=== PATIENT | male | born 1970 | race Caucasian/White ===

== ENCOUNTER 2016-09-06 10:51 | Emergency (ER) | payer OTHER ==
[2016-09-06 11:08] VITALS: TEMP 98; BMI 50.1
--- NOTE | 2016-09-06 11:52 | PDOC ---
History of Present Illness - General Chief Complaint: Wound Infection Stated Complaint: RT LEG WOUND INFECTION Time Seen by Provider: 09/06/16 11:45 History Source: Patient Exam Limitations: No Limitations - History of Present Illness Initial Comments: CHIEF COMPLAINT: 46 y/o afebrile, morbidly obese male, with PMH HTN and peripheral edema c/o infected right leg. HISTORY OF PRESENT ILLNESS: The patient states he had 2 small cuts to his right lower leg about 1 month ago. He states he has been constantly picking at them and over the past 1 week the area has become increasingly more red and warm. He denies f/c, n/v/d, CP, SOB, cough, hemoptysis, abd pain, numbess/ tingling in LEs. Vital signs on arrival are within normal limits. REVIEW OF SYSTEMS: GENERAL/CONSTITUTIONAL: No fever/chills. No weakness. No weight change. HEAD, EYES, EARS, NOSE AND THROAT: No change in vision. No ear pain or discharge. No sore throat. GENITOURINARY: No dysuria, frequency, or change in urination. MUSCULOSKELETAL: +right lower leg redness and warmth. No neck or back pain. SKIN: No rash or easy bruising. NEUROLOGIC: No headache, vertigo, loss of consciousness, or loss of sensation. PHYSICAL EXAM: VITAL_SIGNS: within normal limits GENERAL_APPEARANCE: alert, cooperative, no obvious discomfort. The patient is morbidly obese and ambulatory. MENTAL_STATUS: speech clear, oriented X 3, responds appropriately to questions. NEURO: motor intact and sensory intact in injured extremity. EXTREMITIES: good pulse in injured extremity. 13cm x 10cm in diameter area of erythema on distal right lower extremity. The affected area is warm and TTP. There is 2+pitting edema in affected leg. No streaking. No discharge expressed with pressure. SKIN: warm, dry, good color. Past History - Past Medical History Allergies/Adverse Reactions: Allergies Allergy/AdvReac Type Severity Reaction Status Date / Time No Known Allergies Allergy Verified 09/06/16 11:08 Home Medications: Ambulatory Orders Aspirin [ASA -] 81 mg PO DAILY 09/06/16 Cetirizine HCl [Zyrtec -] 10 mg PO DAILY 09/06/16 Clindamycin 600Mg Premix Ivpb [Cleocin 600 mg Premix Ivpb -] 600 mg IV ONCE #1 bag 09/06/16 Clindamycin [Cleocin -] 300 mg PO QID #40 capsule 09/06/16 Furosemide [Lasix -] 40 mg PO DAILY 09/06/16 GI Disorders: Yes HTN: Yes Other medical history: ALLERGIES - Psycho/Social/Smoking Cessation Hx Suicidal Ideation: No Smoking History: Never smoked Information on smoking cessation initiated: No *Physical Exam - Vital Signs Last Vital Signs Temp Pulse Resp BP Pulse Ox 98 F 89 18 161/96 98 09/06/16 11:04 09/06/16 11:04 09/06/16 11:04 09/06/16 11:04 09/06/16 11:04 ED Treatment Course - LABORATORY CBC & Chemistry Diagram: 09/06/16 11:57 09/06/16 11:57 Medical Decision Making - Medical Decision Making A/P: 46 y/o afebrile male with right Lower leg cellulitis. Plan is as follows: 1. Labs 2. xray lower extremity Labs unremarkable. Xray right leg IMPRESSION: No signs of osteomyelitis. No acute pathology. Will order first dose of IV clinda The patient will be discharged to home with dx of cellulitis. Will discharge to home with rx for 10 days of clinda. instructed him to keep area clean and dry, avoid touching and scratching affected area, and f/u with his PCP tomorrow. Instructed the patient to return to the ER with any worsening or concerning symptoms, including streaking, fevers or worsening of redness. The patient verbalizes understanding of all instructions, has no further questions and is awaiting discharge. *DC/Admit/Observation/Transfer Diagnosis at time of Disposition: Cellulitis Qualifiers: Site of cellulitis: extremity Site of cellulitis of extremity: lower extremity Laterality: right Qualified Code(s): L03.115 - Cellulitis of right lower limb - Discharge Dispostion Disposition: HOME Condition at time of disposition: Good - Prescriptions Prescriptions: Clindamycin 600Mg Premix Ivpb [Cleocin 600 mg Premix Ivpb -] 600 mg IV ONCE #1 bag - Referrals Referrals: Mari Millan MD [Primary Care Provider] - Call tomorrow - Patient Instructions Printed Discharge Instructions: DI for Cellulitis -- Adult Additional Instructions: Discharge Instructions: -Take entire 10 day course of Clindamycin; A prescription was sent to [facility] -Keep area clean and dry -Avoid scratching or touching the affected area -Call your doctor tomorrow to schedule a follow up appointment -return to the ER immediately with any worsening or concerning symptoms, including streaking or fever
[2016-09-06 12:15] LABS: BASOPHIL 0.7 % (0-2.0); EOSINOPHIL 3.4 % (0-4.5); MCH 29.8 pg (25.7-33.7); MCHC 33.4 g/dl (32.0-35.9); MEAN CELL VOLUME 89.2 fl (80-96); MEAN PLT VOLUME 7.6 fl (7.5-11.1); NEUTROPHILS 59.3 % (42.8-82.8); PLATELET COUNT 166 K/MM3 (134-434); RDW 14.3 % (11.9-15.9); WHITE BLOOD COUNT 9.4 K/mm3 (4.0-10.0)
[2016-09-06 12:47] LABS: ALBUMIN 3.6 g/dl (3.4-5.0); ANION GAP 8 (8-16); BILIRUBIN,TOTAL 0.4 mg/dL (0.2-1.0); CALCIUM 8.5 mg/dL (8.5-10.1); CO2 28 mmol/L (21-32); CREATININE 0.9 mg/dL (0.7-1.3); GLUCOSE,RANDOM 120 mg/dL (74-106); SGOT/AST 24 U/L (15-37); SGPT/ALT 47 U/L (12-78); TOT PROT 6.7 g/dl (6.4-8.2)
[2016-09-06 12:48] LABS: ALK PHOS 74 U/L (45-117)
[2016-09-06] MEDS ORDERED: CLINDAMYCIN 600MG PREMIX IVPB 50 ML IVPB ONE ×2 (13:24→13:41)
[2016-09-06 15:05] VITALS: BP 158/94; PULSE 84
== END 2016-09-06 15:06 | disposition home or self-care (01) ==
LOC: JER 10:51
DX: L03.115 Cellulitis of right lower limb (principal)
CPT/HCPCS: 36415; 73590-TC-RT; 80053; 83605; 85025; 96365; 99282-25

== ENCOUNTER 2017-05-13 12:03 | Emergency (ER) | payer OTHER ==
[2017-05-13 12:26] VITALS: BMI 52.9
--- NOTE | 2017-05-13 12:37 | PDOC ---
History of Present Illness - General Chief Complaint: Back Pain Stated Complaint: LOWER BACK PAIN Time Seen by Provider: 05/13/17 12:36 History Source: Patient, Spouse Exam Limitations: No Limitations - History of Present Illness Initial Comments: 05/13/17 13:54 47M with pmh of kidney stones, HTN and cellulitis of the legs presents sudden left lower back back since last night, ongoing now 03/11. Patient took aspirin last night which relieved the pain somewhat but the pain came back this morning more intensely. In addition the patient complains of left-sided, non-reproducible chest pain. In the ED the patient excused himself to urinate and complained subsequently of difficulty passing urine noting blood on the toilet paper after wiping. No fatigue on exertion, no diaphoresis, no nausea, vomiting, headaches Past History - Past Medical History Allergies/Adverse Reactions: Allergies Allergy/AdvReac Type Severity Reaction Status Date / Time No Known Allergies Allergy Verified 09/06/16 11:08 Home Medications: Ambulatory Orders Aspirin [ASA -] 81 mg PO DAILY 05/13/17 Furosemide [Lasix -] 40 mg PO DAILY 05/13/17 Ginkgo Biloba Esparto Extract [Ginkgo] 60 mg PO DAILY 05/13/17 Losartan 50Mg/Hctz 12.5MG [Hyzaar -] 1 tab PO DAILY 05/13/17 Multivit-Min/Iron Fum/Folic AC [Jmuzf-Eambiod-Iufnialq Tablet] 1 each PO DAILY 05/13/17 Diabetes: Yes (PRE-DIABETIC) GI Disorders: Yes (GERD/HEPATITIS A) HTN: Yes - Immunization History Immunization Up to Date: Yes - Suicide/Smoking/Psychosocial Hx Smoking History: Never smoked Have you smoked in the past 12 months: No Information on smoking cessation initiated: No Hx Alcohol Use: No Drug/Substance Use Hx: No Substance Use Type: None Review of Systems - Review of Systems Able to Perform ROS?: Yes Is the patient limited Bahraini proficient: No Constitutional: No: Symptoms Reported HEENTM: No: Symptoms Reported Respiratory: No: Shortness of Breath, SOB with Exertion Cardiac (ROS): Yes: Chest Pain. No: Irregular Heart Rate, Palpitations, Chest Tightness ABD/GI: No: Abd. Pain w/ defecation, Blood Streaked Bowels, Constipated : Yes: Dysuria, Hematuria Musculoskeletal: Yes: See HPI *Physical Exam - Vital Signs Last Vital Signs Temp Pulse Resp BP Pulse Ox 98.4 F 102 H 17 155/91 96 05/13/17 12:21 05/13/17 12:21 05/13/17 12:21 05/13/17 12:21 05/13/17 12:21 - Physical Exam General Appearance: Yes: Appropriately Dressed, Apparent Distress HEENT: positive: Other (mandibular tooth abcess seen by pcp) Neck: negative: Tender Respiratory/Chest: positive: Lungs Clear. negative: Chest Tender Cardiovascular: positive: S1, S2, Tachycardia Vascular Pulses: Dorsalis-Pedis (R): 2+, Doralis-Pedis (L): 2+ Musculoskeletal: positive: CVA Tenderness (L) (reproducible on palpation) Extremity: positive: Cyanosis, Pedal Edema ED Treatment Course - LABORATORY CBC & Chemistry Diagram: 05/13/17 13:05 05/13/17 13:05 Medical Decision Making - Medical Decision Making 05/13/17 15:38 47M presented with lower left flank pain, dysuria and hematuria for the past day. Ketorolac for pain 05/13/17 16:02 ct abd+pelvis: 1. Few punctate nonobstructing bilateral renal calculi (left more than right), each measuring 1-2 mm. No ureteral or urinary bladder calculi. No obstructive uropathy. 2. Normal appendix. 3. Extensive, severe hepatic steatosis. UA negative Patient encouraged to urinate again, and emptied his bladder. PAtient satisfied that the pain is gone. *DC/Admit/Observation/Transfer Diagnosis at time of Disposition: Calculus of kidney - Discharge Dispostion Admit: No - Patient Instructions Printed Discharge Instructions: DI for Kidney Stones Additional Instructions: Take motrin or tylenol for pain.
--- NOTE | 2017-05-13 13:02 | PDOC ---
Attending Attestation - Resident Resident Name: JenkinsParker - ED Attending Attestation I have performed the following: I have examined & evaluated the patient, The case was reviewed & discussed with the resident, I agree w/resident's findings & plan, Exceptions are as noted - HPI HPI: 05/13/17 13:51 47y M hx of kidney stones, pre diabetes presents with complaint of L sided flank pain - pain started last night when he got out of bed t ohelp his get readym started after he stood up - severe L sided nonradiating flank pain w/ o feverchills, vomiting. On exam pt is well appearin gin no distress +reproducible tenderness. pt also notes some hematuria when he urinated here pt noted mildly tachycardic differential includies msk pain vs kidney stones will ck ua, labs toradol will reassess - Physicial Exam PE: 05/13/17 17:13 see above - Medical Decision Making 05/13/17 16:42 pt feeling improved no curernt pain CT shows some nephrolihtiass labs unremarkble suspect possible passed kidney stone will refer the pt to pmd fu return precautions were discussed Heart Score/ECG Review - ECG Impressions Comment:: 05/13/17 16:42 Twelve-lead EKG was performed and reviewed by me. There is normal sinus rhythm with a normal rate. Rate of 88 The axis is normal. The intervals are normal. There is normal R wave progression There are no ST or T wave abnormalities. Impression: Normal twelve-lead EKG
[2017-05-13 13:46] LABS: URINE APPEARANCE SLCLOUDY; URINE BILIRUBIN NEGATIVE (NEGATIVE); URINE BLOOD 3+ (NEGATIVE); URINE COLOR YELLOW; URINE GLUCOSE (UA) NEGATIVE (NEGATIVE); URINE KETONE NEGATIVE (NEGATIVE); URINE NITRITE NEGATIVE (NEGATIVE); URINE PROTEIN NEGATIVE (NEGATIVE); URINE UROBILINOGEN NEGATIVE mg/dL (0.2-1.0)
[2017-05-13] MEDS ORDERED: KETOROLAC TROMETHAMINE 30 MG/1 ML VIAL IVPUSH ONE (13:49)
[2017-05-13 14:01] LABS: URINE HYALINE CAST 3 /lpf; URINE MUCUS FEW; URINE RBC 265 /hpf (0-3); URINE WBC 5 /hpf (3-5)
[2017-05-13] MEDS ORDERED: KETOROLAC TROMETHAMINE 30 MG/1 ML VIAL ONE (14:01)
[2017-05-13 14:15] LABS: BASOPHIL 0.4 % (0-2.0); EOSINOPHIL 1.2 % (0-4.5); MCH 29.5 pg (25.7-33.7); MEAN CELL VOLUME 89.4 fl (80-96); MEAN PLT VOLUME 7.7 fl (7.5-11.1); NEUTROPHILS 66.2 % (42.8-82.8); PLATELET COUNT 203 K/MM3 (134-434); RDW 13.9 % (11.9-15.9); WHITE BLOOD COUNT 9.2 K/mm3 (4.0-10.0)
[2017-05-13 14:43] LABS: ALBUMIN 3.7 g/dl (3.4-5.0); ANION GAP 8 (8-16); BILIRUBIN,DIRECT 0.1 mg/dL (0.0-0.2); BILIRUBIN,TOTAL 0.4 mg/dL (0.2-1.0); CALCIUM 8.8 mg/dL (8.5-10.1); CO2 30 mmol/L (21-32); CREATININE 0.9 mg/dL (0.7-1.3); GLUCOSE,RANDOM 117 mg/dL (74-106); SGOT/AST 27 U/L (15-37); SGPT/ALT 46 U/L (12-78); TOT PROT 7.1 g/dl (6.4-8.2)
[2017-05-13 14:46] LABS: ALK PHOS 84 U/L (45-117); CPK 125 IU/L (39-308); TROPONIN I < 0.02 ng/ml (0.00-0.05)
[2017-05-13 17:01] VITALS: BP 154/92; PULSE 88; TEMP 98.3
[2017-05-13 17:47] LABS: URINE LEUK ESTERASE TRACE (NEGATIVE)
--- NOTE | 2017-05-14 09:11 | EKG ---
Test Reason : Blood Pressure : / mmHG Vent. Rate : 088 BPM Atrial Rate : 088 BPM P-R Int : 154 ms QRS Dur : 098 ms QT Int : 366 ms P-R-T Axes : 042 070 041 degrees QTc Int : 442 ms NORMAL SINUS RHYTHM NORMAL ECG NO PREVIOUS ECGS AVAILABLE Confirmed by RUBENS RECIO MD ([id number]) on 05/14/2017 9:11:07 AM Referred By: Confirmed By:RUBENS RECIO MD
== END 2017-05-13 17:06 | disposition home or self-care (01) ==
LOC: JER 12:03
PROC: 3E0337Z Introduction of Electrolytic and Water Balance Substance into Peripheral Vein, Percutaneous Approach (ICD-10-PCS; principal; 2017-05-13)
DX: N20.0 Calculus of kidney (principal); I10 Essential (primary) hypertension; R73.03 Prediabetes; Z79.82 Long term (current) use of aspirin; Z87.442 Personal history of urinary calculi
CPT/HCPCS: 36415; 74176-TC; 80053; 80076; 81003; 81015; 82550; 84484; 85025; 87086; 93005; 93010; 99284-25